=== PATIENT | female | born 1950 | race Caucasian/White ===

== ENCOUNTER 2018-11-02 05:03 | Inpatient (IN) | payer MEDICARE, OTHER ==
[~2018-11-02] VITALS: Ht 157.5 cm; Wt 69.9 kg
[2018-11-02] MEDS ORDERED: METF-440 PO (16:38)
[2018-11-02] MEDS ORDERED: POLY17PO4 PO (16:38)
[2018-11-02] MEDS ORDERED: LOSA25TA27 PO (16:38)
[2018-11-02] MEDS ORDERED: TRAZ-252 PO (16:38)
[2018-11-02] MEDS ORDERED: GLYB2.5T4 PO (16:38)
[2018-11-02] MEDS ORDERED: RANI150T8 PO (16:38)
[2018-11-02] MEDS ORDERED: LEVE100023 PO (16:38)
[2018-11-02] MEDS ORDERED: ALPR0.255 PO (16:38)
[2018-11-02] MEDS ORDERED: FERR325T23 PO (16:38)
[2018-11-02] MEDS ORDERED: DESV50TA20 PO (16:38)
[2018-11-02] MEDS ORDERED: CLON0.5T12 PO (16:38)
[2018-11-02] MEDS ORDERED: BLOOD SUGAR DIAGNOSTIC 1 EACH STRIP IN ONE (17:00)
[2018-11-02] MEDS ORDERED: MAGNESIUM HYDROXIDE 30 ML UDC PO PRN (17:00)
[2018-11-02] MEDS ORDERED: MAG HYDROX/AL HYDROX/SIMETH 30 ML UDC PO PRN (17:00)
--- NOTE | 2018-11-02 17:27 | NUR ---
GPS/RN RECEIVED PT DIRECT ADMIT ON 5150N HOLD FROM [facility]. ADMITTING ORDERS FROM DR POTTER RECEIVED AND CARRIED OUT. CONRADO MAXWELL NP MADE AWARE OF ADMISSION. PROPERTY CHECKED FOR CONTRABAND. ON FACE TO FACE ASSESSMENT NO SI OR HI REPORTED AT THE TIME OF ADMISSION. ADVISEMENT SERVED.
[2018-11-02 20:20] VITALS: BP 115/65
[2018-11-02] MEDS: LEVETIRACETAM (250 MG) 250 MG TABLET PO SCH (21:15)
[2018-11-03 08:00] VITALS: BP 135/71
[2018-11-03 08:03] LABS: BASOPHILS % (AUTO) 0.7 % (0.0-2.0); EOSINOPHILS % (AUTO) 1.7 % (0.0-6.0); HEMATOCRIT 38 % (33-45); HEMOGLOBIN 12.8 g/dL (11.5-14.8); LYMPHOCYTES # (AUTO) 1.1 /CMM (0.8-4.8); LYMPHOCYTES % (AUTO) 31.3 % (20.0-44.0); MEAN CORPUSCULAR HGB CONC 34 g/dl (31.0-36.0); MEAN CORPUSCULAR VOLUME 91 fL (82-100); MONOCYTES # (AUTO) 0.4 /CMM (0.1-1.30); MONOCYTES % (AUTO) 10.5 % (2.0-12.0); NEUTROPHILS % (AUTO) 55.8 % (43.0-81.0); PLATELET COUNT (AUTO) 232 /CMM (150-450); RED BLOOD CELL COUNT(AUTO) 4.15 MIL/uL (4.0-5.2); WHITE BLOOD COUNT (AUTO) 3.5 K/uL (4.3-11.0)
[2018-11-03 08:20] LABS: ALBUMIN 3.7 g/dL (3.4-5.0); BILIRUBIN,TOTAL 0.3 mg/dL (0.2-1.0); CALCIUM, SERUM 9.1 mg/dL (8.5-10.1); CREATININE 0.6 mg/dL (0.6-1.3); POTASSIUM 3.8 mmol/L (3.5-5.1); TOTAL PROTEIN, SERUM 6.8 g/dL (6.4-8.2)
[2018-11-03 08:24] LABS: CHOLESTEROL 189 mg/dL (<200); HDL CHOLESTEROL 74 mg/dL (40-60); LDL 93 mg/dL (0-99); TRIGLYCERIDES 104 mg/dL (30-150)
[2018-11-03] MEDS: glyBURIDE 5 MG TABLET PO SCH ×2 (08:35→18:26)
[2018-11-03] MEDS: METFORMIN 500 MG TABLET PO SCH ×2 (08:35→17:00)
[2018-11-03] MEDS: FERROUS SULFATE (325 MG) 325 MG/TAB TABLET PO SCH ×3 (08:35→17:00)
[2018-11-03] MEDS: LEVETIRACETAM (250 MG) 250 MG TABLET PO SCH ×2 (08:35→20:50)
[2018-11-03] MEDS: FAMOTIDINE (20 MG) 20 MG TABLET PO SCH (08:35)
[2018-11-03] MEDS: POLYETHYLENE GLYCOL 3350 17 GM POWD.PACK PO SCH (08:35)
[2018-11-03] MEDS: LOSARTAN POTASSIUM 25 MG TABLET PO SCH (08:35)
[2018-11-03] MEDS ORDERED: glyBURIDE 2.5 MG TABLET PO SCH (09:00)
[2018-11-03 16:00] VITALS: BP 130/81
[2018-11-03 20:47] VITALS: BP 105/67
[2018-11-03] MEDS: LORAZEPAM 0.5 MG TABLET PO PRN (21:08)
[2018-11-03] MEDS: MIRTAZAPINE 15 MG TABLET PO SCH (22:00)
[2018-11-04] MEDS: ACETAMINOPHEN 325 MG TABLET PO PRN (04:31)
[2018-11-04 08:00] VITALS: BP 132/56
[2018-11-04] MEDS: glyBURIDE 5 MG TABLET PO SCH (09:26)
[2018-11-04] MEDS: LEVETIRACETAM (250 MG) 250 MG TABLET PO SCH ×2 (09:26→21:54)
[2018-11-04] MEDS: FAMOTIDINE (20 MG) 20 MG TABLET PO SCH (09:26)
[2018-11-04] MEDS: LOSARTAN POTASSIUM 25 MG TABLET PO SCH (09:27)
[2018-11-04] MEDS: METFORMIN 500 MG TABLET PO SCH (09:27)
[2018-11-04] MEDS: FERROUS SULFATE (325 MG) 325 MG/TAB TABLET PO SCH ×3 (09:27→17:14)
[2018-11-04] MEDS: RIVASTIGMINE TARTRATE 1.5 MG CAPSULE PO SCH ×2 (09:29→21:54)
[2018-11-04] MEDS: POLYETHYLENE GLYCOL 3350 17 GM POWD.PACK PO SCH (09:29)
[2018-11-04] MEDS: clonazePAM 0.5 MG TABLET PO SCH ×2 (09:31→21:55)
[2018-11-04] MEDS ORDERED: DEXTROSE 50%-WATER 50 ML DISP.SYRIN ONE (12:14)
--- NOTE | 2018-11-04 12:20 | NUR ---
GPS/RN PT FOUND UNRESPONSIVE AND DIAPHORETIC. RAPID RESPONSE PROTOCOL INITIATED. FOUND WITH LOW BS ON MONITOR. DEXTROSE ADMINISTERED VIA L HAND 22 G HEPLOCK . PT REGAIN CONSCIOUSNESS, ABLE TO TO COMMUNICATE AND ACCUCHECK DONE WITH HZ=889. NEW ORDERS FROM HANS NEUROLOGY TEACHER RECEIVED ADNCARRIED OUT
[2018-11-04] MEDS ORDERED: DEXTROSE 50%-WATER 50 ML DISP.SYRIN IV PRN (12:30)
[2018-11-04] MEDS ORDERED: INSULIN REGULAR, HUMAN 100 UNIT/ML 3 ML VIAL SQ PRN (12:30)
[2018-11-04 12:40] VITALS: BP 161/94
--- NOTE | 2018-11-04 15:15 | NUR ---
GPS/RN PT HAS EPISODE OF LOW BS.(LOW ON THE GLUCOMETER) PT REMAINED CONSCIOUS. HANS COMMERCIAL ELECTRICIAN CALLED FOR THE ORDERS NEW ORDERS RECEIVED AND CARRIED OUT. RIGHT HAND 22G H/L STARTED. DEXTROSE IV GIVEN RESULTED WITH BS= 325 10 MIN AFTER INFUSION.
[2018-11-04 16:00] VITALS: BP 155/74
[2018-11-04] MEDS ORDERED: DEXTROSE 50%-WATER 50 ML DISP.SYRIN IVP ONE (16:00)
[2018-11-04] MEDS ORDERED: IV D5W 1,000 ML IV ONE (16:00)
[2018-11-04] MEDS: BLOOD SUGAR DIAGNOSTIC 1 EACH STRIP IN SCH ×2 (17:21→22:46)
[2018-11-04 21:10] VITALS: BP 125/61
[2018-11-04] MEDS: MIRTAZAPINE 15 MG TABLET PO SCH (21:54)
--- NOTE | 2018-11-04 22:07 | NUR ---
GPS-RN PATIENT'S BLOOD SUGAR LEVEL RESULT-41MG/DL, PATIENT IS AWAKE, ALERT AND VERBALLY RESPONSIVE. ON IV D5W @50CC/HR INFUSING WELL. HEPLOCK ON R HAND 22G, PATENT AND INTACT. ORANGE JUICE WAS GIVEN, TOLERATED WELL. 223- RECHECKED BSL -92MG/DL PATIENT IS AWAKE, ALERT AND VERBALLY RESPONSIVE. WILL CONTINUE TO MONITOR.
[2018-11-05] MEDS: LORAZEPAM 0.5 MG TABLET PO PRN (02:13)
[2018-11-05 08:00] VITALS: BP 131/72
[2018-11-05] MEDS: BLOOD SUGAR DIAGNOSTIC 1 EACH STRIP IN SCH ×4 (08:07→22:20)
[2018-11-05] MEDS: LOSARTAN POTASSIUM 25 MG TABLET PO SCH (08:39)
[2018-11-05] MEDS: RIVASTIGMINE TARTRATE 1.5 MG CAPSULE PO SCH ×2 (08:39→22:19)
[2018-11-05] MEDS: FERROUS SULFATE (325 MG) 325 MG/TAB TABLET PO SCH ×3 (08:39→16:47)
[2018-11-05] MEDS: clonazePAM 0.5 MG TABLET PO SCH ×2 (08:39→22:19)
[2018-11-05] MEDS: LEVETIRACETAM (250 MG) 250 MG TABLET PO SCH ×2 (08:39→22:19)
[2018-11-05] MEDS: FAMOTIDINE (20 MG) 20 MG TABLET PO SCH (08:39)
[2018-11-05] MEDS: POLYETHYLENE GLYCOL 3350 17 GM POWD.PACK PO SCH (09:32)
--- NOTE | 2018-11-05 15:21 | NUR ---
KRISTOFER called the pts , Juwan ([phone]), and received a busy dial tone and therefore was unable to leave a message.
--- NOTE | 2018-11-05 15:30 | NUR ---
GROUP NOTE: SW encourage pt to participate in group therapy in this present day discussing the topic of "reality-testing." Pt refused to attend stating, " I am very anxious and I feel like I will get a panic attack if I leave my room." SW provided intervention and discussed pts anxiety and suicidal ideation. Pt stated that she just couldn't function without her and that she needed him.
[2018-11-05 16:00] VITALS: BP 102/64
--- NOTE | 2018-11-05 16:04 | NUR ---
Initial Discharge Plan: Pt currently resides in her home with her located at [facility] [place] [address]; ([phone]). Per pt, she would like to return to her home once her goes back. KRISTOFER will work with the pt and the MD regarding appropriate discharge planning. SW will form a safe and discharge plan.
[2018-11-05 17:21] LABS: CREATININE 0.8 mg/dL (0.6-1.3); POTASSIUM 3.9 mmol/L (3.5-5.1)
[2018-11-05 20:09] VITALS: BP 102/55
[2018-11-05] MEDS: MIRTAZAPINE 15 MG TABLET PO SCH (22:19)
[2018-11-06 08:00] VITALS: BP 106/65
[2018-11-06] MEDS: BLOOD SUGAR DIAGNOSTIC 1 EACH STRIP IN SCH ×4 (08:01→21:34)
[2018-11-06] MEDS: LOSARTAN POTASSIUM 25 MG TABLET PO SCH (09:00)
[2018-11-06] MEDS: FAMOTIDINE (20 MG) 20 MG TABLET PO SCH (09:25)
[2018-11-06] MEDS: RIVASTIGMINE TARTRATE 1.5 MG CAPSULE PO SCH ×2 (09:25→20:24)
[2018-11-06] MEDS: LEVETIRACETAM (250 MG) 250 MG TABLET PO SCH ×2 (09:25→20:24)
[2018-11-06] MEDS: FERROUS SULFATE (325 MG) 325 MG/TAB TABLET PO SCH ×3 (09:25→16:58)
[2018-11-06] MEDS: clonazePAM 0.5 MG TABLET PO SCH ×2 (09:25→20:24)
[2018-11-06] MEDS: POLYETHYLENE GLYCOL 3350 17 GM POWD.PACK PO SCH (09:25)
[2018-11-06] MEDS: LORAZEPAM 0.5 MG TABLET PO PRN (12:06)
--- NOTE | 2018-11-06 12:10 | NUR ---
GPS/RN-NOTES PATIENT SCREAMING AND YELLING IN THE ROOM,CRYING AND ANGRY. ENCOURAGED PATIENT TO VENT FEELINGS AT STAFF. ATIVAN OFFERED AND AGREED. ATIVAN 1MG P.O GIVEN PRN ORDER. WILL CONT. MONITORING Q15 MINS. FOR SAFETY AND BEHAVIOR.
--- NOTE | 2018-11-06 13:15 | NUR ---
GPS/RN -NOTES PATIENT LAYING IN BED CALM,NO ACUTE DISTRESS NOTED.
--- NOTE | 2018-11-06 15:26 | NUR ---
Group Note: KRISTOFER encouraged pt to participate in group therapy on 11/06/18 at 2pm discussing the topic of discharge planning. Pt refused to attend stating, "I do not want to talk about anything in front of all of them." SW provided an individual intervention and discussed pts anxiety around speak to other people and she stated that she only wants to go home and speak to her own .
[2018-11-06 16:00] VITALS: BP 108/60
[2018-11-06 19:58] VITALS: BP 145/67
[2018-11-06] MEDS: MIRTAZAPINE 15 MG TABLET PO SCH (21:19)
[2018-11-07 08:00] VITALS: BP 110/65
[2018-11-07] MEDS: BLOOD SUGAR DIAGNOSTIC 1 EACH STRIP IN SCH ×4 (08:40→22:11)
[2018-11-07] MEDS: POLYETHYLENE GLYCOL 3350 17 GM POWD.PACK PO SCH (08:41)
[2018-11-07] MEDS: RIVASTIGMINE TARTRATE 1.5 MG CAPSULE PO SCH ×2 (08:41→21:32)
[2018-11-07] MEDS: FAMOTIDINE (20 MG) 20 MG TABLET PO SCH (08:42)
[2018-11-07] MEDS: FERROUS SULFATE (325 MG) 325 MG/TAB TABLET PO SCH ×3 (08:42→17:03)
[2018-11-07] MEDS: LOSARTAN POTASSIUM 25 MG TABLET PO SCH (08:42)
[2018-11-07] MEDS: clonazePAM 0.5 MG TABLET PO SCH ×2 (08:42→21:32)
[2018-11-07] MEDS: LEVETIRACETAM (250 MG) 250 MG TABLET PO SCH ×2 (08:43→21:32)
[2018-11-07 16:00] VITALS: BP 132/65
--- NOTE | 2018-11-07 18:49 | NUR ---
RN NOTE: 1700 BS 138: PATIENT REFUSED COVERAGE.
[2018-11-07 20:12] VITALS: BP 118/64
[2018-11-07] MEDS: MIRTAZAPINE 15 MG TABLET PO SCH (21:32)
[2018-11-08] MEDS: ACETAMINOPHEN 325 MG TABLET PO PRN (01:14)
[2018-11-08 07:23] LABS: BASOPHILS % (AUTO) 0.7 % (0.0-2.0); EOSINOPHILS % (AUTO) 3.5 % (0.0-6.0); HEMATOCRIT 34 % (33-45); HEMOGLOBIN 11.6 g/dL (11.5-14.8); LYMPHOCYTES # (AUTO) 1.3 /CMM (0.8-4.8); LYMPHOCYTES % (AUTO) 35.1 % (20.0-44.0); MEAN CORPUSCULAR HGB CONC 34 g/dl (31.0-36.0); MEAN CORPUSCULAR VOLUME 91 fL (82-100); MONOCYTES # (AUTO) 0.4 /CMM (0.1-1.30); NEUTROPHILS # (AUTO) 1.8 /CMM (1.8-8.9); NEUTROPHILS % (AUTO) 49.7 % (43.0-81.0); PLATELET COUNT (AUTO) 204 /CMM (150-450); WHITE BLOOD COUNT (AUTO) 3.7 K/uL (4.3-11.0)
[2018-11-08 07:47] LABS: CALCIUM, SERUM 8.7 mg/dL (8.5-10.1); CREATININE 0.6 mg/dL (0.6-1.3); PHOSPHORUS 4.4 mg/dL (2.5-4.9); POTASSIUM 4.3 mmol/L (3.5-5.1)
[2018-11-08] MEDS: BLOOD SUGAR DIAGNOSTIC 1 EACH STRIP IN SCH ×4 (07:55→22:20)
[2018-11-08 08:00] VITALS: BP 118/67
[2018-11-08] MEDS: FAMOTIDINE (20 MG) 20 MG TABLET PO SCH (09:04)
[2018-11-08] MEDS: RIVASTIGMINE TARTRATE 1.5 MG CAPSULE PO SCH ×2 (09:04→20:35)
[2018-11-08] MEDS: clonazePAM 0.5 MG TABLET PO SCH (09:04)
[2018-11-08] MEDS: LEVETIRACETAM (250 MG) 250 MG TABLET PO SCH ×2 (09:04→20:35)
[2018-11-08] MEDS: POLYETHYLENE GLYCOL 3350 17 GM POWD.PACK PO SCH (09:05)
[2018-11-08] MEDS: FERROUS SULFATE (325 MG) 325 MG/TAB TABLET PO SCH ×3 (09:05→16:46)
[2018-11-08] MEDS: LOSARTAN POTASSIUM 25 MG TABLET PO SCH (09:05)
--- NOTE | 2018-11-08 10:40 | NUR ---
SW spoke to the pt in her room regarding her discharge planning. The pt stated that her was placed in a Board and Care that she is unaware of and needs to know. She stated that they both cannot return to their home and therefore they need placement. She does not want to be placed in the same board and care as him but would like to know where he is and how they can be together. SW stated that she will call the hospital that he came from and attempt to collect information.
--- NOTE | 2018-11-08 11:49 | NUR ---
SW called the pts , Juwan ([phone]), and received a non working number message.
--- NOTE | 2018-11-08 12:09 | NUR ---
KRISTOFER faxed a referral to [facility] with attention to Ara GUNN to fax number: [phone].
--- NOTE | 2018-11-08 12:41 | NUR ---
RN NOTE: 1200 BS 81 MG/DL NO COVERAGE NEEDED.
--- NOTE | 2018-11-08 15:30 | NUR ---
GROUP NOTE: Pt was present in group therapy on 11/08/18 at 2:30pm but was unable to participate as pt is cognitively impaired.
--- NOTE | 2018-11-08 15:54 | NUR ---
RN NOTE: INFORMED DONIS CHARLES ABOUT PATIENT'S LABILE BS LEVELS. RECOMMENDED HGBA1C LABS TO BE DRAWN. ARACELI STATED SHE WILL PUT IN ORDERS.
[2018-11-08 16:00] VITALS: BP 100/60
--- NOTE | 2018-11-08 16:49 | NUR ---
RN NOTE: 1700 BS 92 MG/DL. NO COVERAGE NEEDED.
[2018-11-08] MEDS ORDERED: clonazePAM 0.5 MG TABLET PO SCH (17:30)
[2018-11-08 20:00] VITALS: BP 112/52
[2018-11-08 20:06] VITALS: BP 112/52
[2018-11-08] MEDS: MIRTAZAPINE 15 MG TABLET PO SCH (22:09)
[2018-11-08] MEDS: TEMAZEPAM 7.5 MG CAPSULE PO PRN (23:44)
--- NOTE | 2018-11-08 23:44 | NUR ---
GPS RN NOTE, PATIENT HAS A COMPLAINT OF NOT BEING ABLE TO SLEEP AND IS REQUESTING RESTORIL AT THIS TIME. PATIENT VITAL SIGNS ARE STABLE. GAVE RESTORIL 15MG PO HS PRN ORDERED. WILL REASSESS FOR INSOMNIA AND I WILL CONTINUE TO MONITOR THIS PATIENT.
[2018-11-09 08:00] VITALS: BP 115/75
[2018-11-09] MEDS: BLOOD SUGAR DIAGNOSTIC 1 EACH STRIP IN SCH (08:56)
[2018-11-09] MEDS: POLYETHYLENE GLYCOL 3350 17 GM POWD.PACK PO SCH (08:56)
[2018-11-09] MEDS: LOSARTAN POTASSIUM 25 MG TABLET PO SCH (08:57)
[2018-11-09] MEDS: FAMOTIDINE (20 MG) 20 MG TABLET PO SCH (08:57)
[2018-11-09] MEDS: FERROUS SULFATE (325 MG) 325 MG/TAB TABLET PO SCH ×3 (08:57→16:30)
[2018-11-09] MEDS: RIVASTIGMINE TARTRATE 1.5 MG CAPSULE PO SCH ×2 (08:57→20:47)
[2018-11-09] MEDS: clonazePAM 0.5 MG TABLET PO SCH ×3 (09:02→16:30)
[2018-11-09] MEDS: LEVETIRACETAM (250 MG) 250 MG TABLET PO SCH ×2 (09:03→20:47)
--- NOTE | 2018-11-09 09:39 | NUR ---
Ara ([phone]) from [facility] contacted the and stated that the pt was accepted to their facility.
--- NOTE | 2018-11-09 13:09 | NUR ---
RN NOTE: PATIENT HAD HER LABS DRAWN. HGBA1C LEVELS ARE 5.[address] PACKER AND WAS ORDERED TO DC ALL DIABETIC ORDERS. ORDERS WERE DISCONTINUED AND PATIENT'S DIET WAS SWITCHED FROM CCHO TO CARDIAC.
[2018-11-09 16:00] VITALS: BP 112/60
[2018-11-09 20:00] VITALS: BP 101/52
[2018-11-09 20:51] VITALS: BP 101/52
[2018-11-09] MEDS: MIRTAZAPINE 15 MG TABLET PO SCH (21:23)
--- NOTE | 2018-11-10 03:54 | NUR ---
RN NOTES: SLEEP WELL IN THE NIGHT, MED COMPLIANCE, CONTINUE TO KEEP ON CLOSE WATCH, FALL, SAFETY AND ASPIRATION PRECAUTION OBSERVED.
[2018-11-10 08:00] VITALS: BP 100/64
[2018-11-10] MEDS: POLYETHYLENE GLYCOL 3350 17 GM POWD.PACK PO SCH (08:32)
[2018-11-10] MEDS: LOSARTAN POTASSIUM 25 MG TABLET PO SCH (08:33)
[2018-11-10] MEDS: clonazePAM 0.5 MG TABLET PO SCH ×3 (08:33→17:07)
[2018-11-10] MEDS: FERROUS SULFATE (325 MG) 325 MG/TAB TABLET PO SCH ×3 (08:33→17:07)
[2018-11-10] MEDS: FAMOTIDINE (20 MG) 20 MG TABLET PO SCH (08:33)
[2018-11-10] MEDS: LEVETIRACETAM (250 MG) 250 MG TABLET PO SCH ×2 (08:36→21:18)
[2018-11-10] MEDS: RIVASTIGMINE TARTRATE 1.5 MG CAPSULE PO SCH ×2 (08:36→21:18)
[2018-11-10 16:00] VITALS: BP 113/60
[2018-11-10 20:00] VITALS: BP 102/57
[2018-11-10 20:15] VITALS: BP 102/57
[2018-11-10] MEDS: MIRTAZAPINE 15 MG TABLET PO SCH (21:18)
[2018-11-11 08:00] VITALS: BP 116/57
[2018-11-11] MEDS: POLYETHYLENE GLYCOL 3350 17 GM POWD.PACK PO SCH (08:32)
[2018-11-11] MEDS: clonazePAM 0.5 MG TABLET PO SCH ×3 (08:32→16:21)
[2018-11-11] MEDS: LEVETIRACETAM (250 MG) 250 MG TABLET PO SCH ×2 (08:32→21:34)
[2018-11-11] MEDS: RIVASTIGMINE TARTRATE 1.5 MG CAPSULE PO SCH ×2 (08:33→21:34)
[2018-11-11] MEDS: FAMOTIDINE (20 MG) 20 MG TABLET PO SCH (08:34)
[2018-11-11] MEDS: LOSARTAN POTASSIUM 25 MG TABLET PO SCH (08:34)
[2018-11-11] MEDS: FERROUS SULFATE (325 MG) 325 MG/TAB TABLET PO SCH ×3 (08:34→16:21)
[2018-11-11 16:00] VITALS: BP 130/80
[2018-11-11 20:00] VITALS: BP 99/41
[2018-11-11 20:09] VITALS: BP 99/41
[2018-11-11] MEDS: MIRTAZAPINE 15 MG TABLET PO SCH (21:34)
[2018-11-11] MEDS: TEMAZEPAM 7.5 MG CAPSULE PO PRN (22:23)
[2018-11-12 08:00] VITALS: BP 113/70
[2018-11-12] MEDS: clonazePAM 0.5 MG TABLET PO SCH ×3 (08:36→16:06)
[2018-11-12] MEDS: POLYETHYLENE GLYCOL 3350 17 GM POWD.PACK PO SCH (08:36)
[2018-11-12] MEDS: LEVETIRACETAM (250 MG) 250 MG TABLET PO SCH ×2 (08:36→20:27)
[2018-11-12] MEDS: FAMOTIDINE (20 MG) 20 MG TABLET PO SCH (08:36)
[2018-11-12] MEDS: FERROUS SULFATE (325 MG) 325 MG/TAB TABLET PO SCH ×3 (08:37→16:06)
[2018-11-12] MEDS: LOSARTAN POTASSIUM 25 MG TABLET PO SCH (08:37)
[2018-11-12] MEDS: RIVASTIGMINE TARTRATE 1.5 MG CAPSULE PO SCH ×2 (08:37→20:27)
--- NOTE | 2018-11-12 12:45 | NUR ---
KRISTOFER received a call from Nina ([phone]) and she stated that the pts , Elieser, is currently at [facility]. She stated that she works for a placement agency and that she is attempting to place the pts and the pt together. She asked the SW to fill out the physicians report and fax it to her the following day.
--- NOTE | 2018-11-12 14:51 | NUR ---
GROUP NOTE: Pt was present in group therapy on 11/12/18 at 1:30pm but was unable to participate as pt is cognitively impaired and confused.
[2018-11-12 16:00] VITALS: BP 113/60
[2018-11-12 19:41] VITALS: BP 115/63
[2018-11-12] MEDS: TEMAZEPAM 7.5 MG CAPSULE PO PRN (20:27)
[2018-11-12] MEDS: MIRTAZAPINE 15 MG TABLET PO SCH (21:23)
[2018-11-12] MEDS: LORAZEPAM 0.5 MG TABLET PO PRN (21:23)
[2018-11-13 08:00] VITALS: BP 117/69
[2018-11-13] MEDS: LOSARTAN POTASSIUM 25 MG TABLET PO SCH (09:00)
[2018-11-13] MEDS: clonazePAM 0.5 MG TABLET PO SCH ×3 (09:42→17:38)
[2018-11-13] MEDS: FAMOTIDINE (20 MG) 20 MG TABLET PO SCH (09:43)
[2018-11-13] MEDS: LEVETIRACETAM (250 MG) 250 MG TABLET PO SCH ×2 (09:43→21:05)
[2018-11-13] MEDS: RIVASTIGMINE TARTRATE 1.5 MG CAPSULE PO SCH ×2 (09:43→21:05)
[2018-11-13] MEDS: FERROUS SULFATE (325 MG) 325 MG/TAB TABLET PO SCH ×3 (09:43→17:38)
--- NOTE | 2018-11-13 12:42 | NUR ---
KRISTOFER called Nina ([phone]) from the placement agency and stated that the SW had the Physicians Report completed but the chest x ray results are still pending. Nina stated that once the report is done to have it faxed over. She stated that she has APS involved in terms of figuring out the pts finances and that she is working to find placement.
--- NOTE | 2018-11-13 12:53 | NUR ---
KRISTOFER faxed a Physicians Report to Nina Guerrier to the fax number: [phone].
--- NOTE | 2018-11-13 12:58 | NUR ---
CHEST X-RAY DONE.
[2018-11-13] MEDS: POLYETHYLENE GLYCOL 3350 17 GM POWD.PACK PO SCH (13:21)
[2018-11-13 15:49] VITALS: BP 133/79
[2018-11-13 20:02] VITALS: BP 98/52
[2018-11-13] MEDS: LORAZEPAM 0.5 MG TABLET PO PRN (20:42)
--- NOTE | 2018-11-13 20:45 | NUR ---
GPS-RN RECEIVED A CALL FROM [facility] THAT PATIENT'S AT 8:25PM. DR. POTTER ORDERED ATIVAN 1MG PO ONCE. ADMINISTERED ATIVAN 1MG PO TO KEEP HER DOWN BEFORE THE CHARGE NURSE TALK TO HER.
[2018-11-13] MEDS ORDERED: LORAZEPAM 1 MG TABLET PO ONE (21:00)
[2018-11-13] MEDS: MIRTAZAPINE 15 MG TABLET PO SCH (21:06)
[2018-11-13] MEDS: TEMAZEPAM 7.5 MG CAPSULE PO PRN (22:37)
[2018-11-14] MEDS: LORAZEPAM 0.5 MG TABLET PO PRN (02:05)
--- NOTE | 2018-11-14 06:30 | NUR ---
GPS-RN PATIENT IS VERY DEPRESSED, CRYING, GRIEVING TO HER 'S PASSING LAST NIGHT. PATIENT VERBALIZED WANTING TO KILL HERSELF BUT PATIENT IS ABLE TO CONTRACT FOR SAFETY. VERBALIZATION OF FEELINGS ENCOURAGED. WILL CONTINUE TO MONITOR Q15MIN ROUNDS FOR SAFETY AND BEHAVIOR.
[2018-11-14 08:00] VITALS: BP 130/78
[2018-11-14] MEDS: clonazePAM 0.5 MG TABLET PO SCH ×3 (09:00→18:44)
--- NOTE | 2018-11-14 09:53 | NUR ---
KRISTOFER received a call from pts friend, Eleanor ([phone]), who stated that the pts last night. She stated that she is moving to [place] the following morning but would like to figure out a plan for the pt because she does not have anyone else. She stated that she wants the SW to work with Nina and place the pt in [place] at a Care Center. KRISTOFER stated that she would speak to both the pt and Nina.
--- NOTE | 2018-11-14 10:17 | NUR ---
Individual Intervention: SW spoke to the pt about her husbands passing and her discharge planning. SW provided emotional support as the pt processed his . Once the pt appeared to be calm, SW stated that she is going to continue working on her discharge planning towards her home with Nina to handle her finances and belongings and then the pt will continue to work with Nina regarding a more permanent placement in [place] where she has support. Pt stated that she was feeling anxious and overwhelmed and the SW affirmed those feelings and stated that she has individuals/professionals who are assisting her.
--- NOTE | 2018-11-14 10:21 | NUR ---
KRISTOFER called Nina ([phone]), placement agency [employer], and stated that she has been updated regarding the pts situation and that she will attempt to fax the Physicians report again so that placement can be acquired and the pt can move along with her discharge.
[2018-11-14] MEDS: LOSARTAN POTASSIUM 25 MG TABLET PO SCH (10:26)
[2018-11-14] MEDS: FAMOTIDINE (20 MG) 20 MG TABLET PO SCH (10:26)
[2018-11-14] MEDS: RIVASTIGMINE TARTRATE 1.5 MG CAPSULE PO SCH ×2 (10:26→22:21)
[2018-11-14] MEDS: LEVETIRACETAM (250 MG) 250 MG TABLET PO SCH ×2 (10:26→22:21)
[2018-11-14] MEDS: POLYETHYLENE GLYCOL 3350 17 GM POWD.PACK PO SCH (10:27)
[2018-11-14] MEDS: FERROUS SULFATE (325 MG) 325 MG/TAB TABLET PO SCH ×3 (10:27→18:44)
--- NOTE | 2018-11-14 13:15 | NUR ---
Individual Intervention: SW met with the pt once again because she stated that she wanted to talk about her husbands passing. SW informed her about the plan and how it has changed since her passed and the pt appeared to be distressed. Pt stated, "I want to kill myself."
--- NOTE | 2018-11-14 14:57 | NUR ---
KRISTOFER called Nina ([phone]), placement agency case filler, and she stated that she received the fax and is working on placing the pt. She stated that the pts friend is going to be her DPOA and that they are trying to locate the money that the pts took out to close their accounts before he .
[2018-11-14 16:00] VITALS: BP 105/67
--- NOTE | 2018-11-14 16:03 | NUR ---
SW received a call from Lesley ([phone]) from [facility] who stated that the placement agency is interested in the pt and would like a fax of records.
--- NOTE | 2018-11-14 16:07 | NUR ---
GROUP NOTE: SW encouraged pt to attend group therapy on this present day discussing "discharge planning." Pt stated that she was feeling sad as she received news that her . Pt appeared with sad affect and tearful. SW provided pt with loss and grief intervention.
--- NOTE | 2018-11-14 16:15 | NUR ---
KRISTOFER faxed a referral to [facility] with attention to Lesley to the fax number: [phone].
--- NOTE | 2018-11-14 18:30 | NUR ---
relocated to [facility]. dr. maldonado in with plans of dc tomorrow.
[2018-11-14 19:57] VITALS: BP 101/56
--- NOTE | 2018-11-14 20:00 | NUR ---
GPS-RN PM OPENING NOTE PATIENT IS VERY DEPRESSED LAYING IN BED. SEEN WITH EYES CLOSED. PATIENT RESPONDS TO VOICE WITH TOUCH. STATES " I DON'T WANT TO BE BOTHERED AT THIS TIME." PATIENT WOULDNT DENY NOR CONFIRM SI AND HI. RESTATED SHE WANTED TO BE LEFT ALONE, STATES SHE IS JUST TRYING TO REST AND GET SOME SLEEP. . VERBALIZATION OF FEELINGS ENCOURAGED. WILL CONTINUE TO MONITOR Q15MIN ROUNDS FOR SAFETY AND BEHAVIOR.
[2018-11-14] MEDS: MIRTAZAPINE 15 MG TABLET PO SCH (22:21)
[2018-11-15 08:00] VITALS: BP 113/59
[2018-11-15] MEDS: FERROUS SULFATE (325 MG) 325 MG/TAB TABLET PO SCH ×3 (09:07→16:36)
[2018-11-15] MEDS: LOSARTAN POTASSIUM 25 MG TABLET PO SCH (09:07)
[2018-11-15] MEDS: LEVETIRACETAM (250 MG) 250 MG TABLET PO SCH ×2 (09:07→21:07)
[2018-11-15] MEDS: POLYETHYLENE GLYCOL 3350 17 GM POWD.PACK PO SCH (09:07)
[2018-11-15] MEDS: FAMOTIDINE (20 MG) 20 MG TABLET PO SCH (09:07)
[2018-11-15] MEDS: RIVASTIGMINE TARTRATE 1.5 MG CAPSULE PO SCH ×2 (09:07→21:07)
[2018-11-15] MEDS: clonazePAM 0.5 MG TABLET PO SCH ×3 (09:08→16:36)
--- NOTE | 2018-11-15 10:23 | NUR ---
KRISTOFER called Nina ([phone]), from [facility], and she stated that the pts friend, Eleanor, moved to [place] and did not handle the finances for the pt before leaving. She stated that without the money there is no way of transferring the pt to a facility that she would have to pay for. She stated that APS is involved and provided the SW with the information of the mailroom personnel. KRISTOFER stated that the pt was accepted to [facility] and that she will be discharged tomorrow.
--- NOTE | 2018-11-15 10:51 | NUR ---
KRISTOFER called pts APS Jevon MINER ([phone]), and left a voicemail stating that the SW would like to discuss the pts case and placement.
--- NOTE | 2018-11-15 10:52 | NUR ---
KRISTOFER contacted Ara ([phone]) from [facility] and informed her that the pt will be discharged tomorrow.
--- NOTE | 2018-11-15 10:57 | NUR ---
KRISTOFER called Eleanor ([phone]), pts friend, and informed her that the pt will be sent to a facility called [facility] and she stated that she will call the SW back to receive the information of the facility and expressed how difficult it has been to navigate through her affairs.
--- NOTE | 2018-11-15 15:45 | NUR ---
Group Note: 11/15/18 Goal: Patient will attend group held today from 2-2:30pm in the activities room and participate and/or actively listen to peers and be respectful. Intervention: SW facilitated group session with patients regarding Mindfulness. SW current relaxation techniques and educated pt. about mindfulness how to practice it and its purpose. SW facilitated mindfulness breathing exercise. Response: Patient was agreeable to participating in group session. The patient presented withdrawn not wanting to share with the group. However, she participated in the mindfulness breathing exercises. Patient was alert remained calm and cooperative throughout session. The patient was respectful towards her peers when they shared. Plan: Patient will be invited to attend next home health care social worker group session held.
[2018-11-15 16:00] VITALS: BP 121/77
[2018-11-15 20:29] VITALS: BP 110/59
[2018-11-15] MEDS: MIRTAZAPINE 15 MG TABLET PO SCH (21:07)
[2018-11-16 08:00] VITALS: BP 114/65
[2018-11-16] MEDS: clonazePAM 0.5 MG TABLET PO SCH (08:04)
[2018-11-16 08:05] VITALS: BP 114/65
[2018-11-16] MEDS: POLYETHYLENE GLYCOL 3350 17 GM POWD.PACK PO SCH (08:05)
[2018-11-16] MEDS: RIVASTIGMINE TARTRATE 1.5 MG CAPSULE PO SCH (08:05)
[2018-11-16] MEDS: LEVETIRACETAM (250 MG) 250 MG TABLET PO SCH (08:05)
[2018-11-16] MEDS: FAMOTIDINE (20 MG) 20 MG TABLET PO SCH (08:05)
[2018-11-16] MEDS: FERROUS SULFATE (325 MG) 325 MG/TAB TABLET PO SCH (08:05)
[2018-11-16] MEDS: LOSARTAN POTASSIUM 25 MG TABLET PO SCH (08:05)
--- NOTE | 2018-11-16 08:13 | NUR ---
DR. POTTER GAVE AN ORDER TO D//C HOLD AND D/C TO [facility] AND TO FOLLOW UP WITH PSYCH AND MEDICAL DOCTORS.
--- NOTE | 2018-11-16 10:00 | NUR ---
RN NOTE: PT D/C TO [facility] AT THIS TIME IN [place]. TRANSPORTATION FROM FACILITY PROVIDED. PT AOx3, ID BAND REMOVED. DENIES SI AND HI AT THIS TIME. MEDICATIONS BROUGHT TO FACILITY FROM HOME RETURNED TO PT. PT REFUSED SKIN ASSESSMENT PHOTOGRAPHS AT THIS TIME. VSS. REPORT CALLED TO NARCISO PINTO AT FACILITY.
--- NOTE | 2018-11-16 12:24 | NUR ---
Individual Intervention: SW spoke to the pt about her discharge plan and the pt was informed that she will be followed by a placement agency that will assist her with her transfer to [place].
--- NOTE | 2018-11-16 12:25 | NUR ---
Discharge Note: Pt was discharged to [facility] ([facility] located at [address] [place] [id number]; ([phone]). Pt was picked up by the facility around 10AM. Pt�s friend, Eleanor ([phone]), was made aware of the discharge. Upon discharge, the pt appeared to be in a depressed mood and presented with a distressed affect. Pt denied both suicidal and homicidal ideation as well as visual and auditory hallucinations. Pt will continue to be followed up by Nina Guerrier ([phone]) from [facility] regarding placing the pt at a care facility near her friend. Pt will be under the care of her psychiatrist, Dr. Hong, located at [address] [place] [address]; and her aircraft engineer, Dr. Sosa, located at [address] [place] [address] [address], [place] [address]; .
[2018-11-17] MEDS ORDERED: FAMO20TA8 PO (07:23)
[2018-11-17] MEDS ORDERED: LEVE1000 PO (07:27)
[2018-11-17] MEDS ORDERED: MIRT30TA PO (07:29)
[2018-11-17] MEDS ORDERED: CLON0.5T12 PO (07:33)
[2018-11-17] MEDS ORDERED: RIVA1.5C7 PO (07:41)
== END 2018-11-16 10:00 | DRG 885 ==
LOC: GPS 16:14
PROVIDERS: ADMIT Psychiatry & Neurology Psychiatry; ATTEND Nurse Practitioner Acute Care
DX: F33.9 Major depressive disorder, recurrent, unspecified (principal); K21.9 Gastro-esophageal reflux disease without esophagitis; E86.0 Dehydration; K58.9 Irritable bowel syndrome, unspecified; M79.7 Fibromyalgia; Z73.6 Limitation of activities due to disability; M19.90 Unspecified osteoarthritis, unspecified site; F41.9 Anxiety disorder, unspecified; E11.649 Type 2 diabetes mellitus with hypoglycemia without coma; T38.3X5A Adverse effect of insulin and oral hypoglycemic [antidiabetic] drugs, initial encounter; Z79.84 Long term (current) use of oral hypoglycemic drugs; F03.90 Unspecified dementia, unspecified severity, without behavioral disturbance, psychotic disturbance, mood disturbance, and anxiety
CPT/HCPCS: 36415; 71045-TC; 80048-TC; 80053-TC; 80061-TC; 82962-TC; 83735-TC; 84100-TC; 85025-TC; 87081-TC; J1815; J7070

== ENCOUNTER 2018-11-16 18:57 | Inpatient (IN) | payer MEDICARE, OTHER ==
[~2018-11-16] VITALS: Ht 162.6 cm; Wt 74.8 kg
[~2018-11-16 18:57] MED LIST: FERR325T23 PO; GLYB2.5T4 PO; LEVE100023 PO; LOSA25TA27 PO; METF-440 PO; POLY17PO4 PO; RANI150T8 PO
[2018-11-16 19:43] LABS: BASOPHILS % (AUTO) 0.5 % (0.0-2.0); EOSINOPHILS % (AUTO) 1.8 % (0.0-6.0); HEMATOCRIT 39 % (33-45); HEMOGLOBIN 13.1 g/dL (11.5-14.8); LYMPHOCYTES % (AUTO) 31.9 % (20.0-44.0); MEAN CORPUSCULAR HGB CONC 34 g/dl (31.0-36.0); MEAN CORPUSCULAR VOLUME 91 fL (82-100); MONOCYTES # (AUTO) 0.5 /CMM (0.1-1.30); MONOCYTES % (AUTO) 8.4 % (2.0-12.0); NEUTROPHILS # (AUTO) 3.6 /CMM (1.8-8.9); NEUTROPHILS % (AUTO) 57.4 % (43.0-81.0); PLATELET COUNT (AUTO) 254 /CMM (150-450); RED BLOOD CELL COUNT(AUTO) 4.24 MIL/uL (4.0-5.2); WHITE BLOOD COUNT (AUTO) 6.2 K/uL (4.3-11.0)
--- NOTE | 2018-11-16 20:09 | NUR ---
CALLED [facility] [phone] PER NURSE, ELLIOT "PT WAS TRANSFERRED FROM [facility], WAS HERE FOR 2 HOURS, PT STATES DOES NOT WANT TO STAY, BEGAN TO CRY, FEELS LIKE HER LIFE IS GOING TO END THERE. NO PLANS STATES"
--- NOTE | 2018-11-16 20:17 | NUR ---
PATIENT SEEN PATIENT SEEN REPORTS SHE JUST LEFT FROM [facility] AND WENT TO OUTSIDE FACILITY AND BROUGHT BACK TO ER FOR SI. PATIENT EXRESSED DESIRE TO KILL HERSELF BUT DENIES ANY PLAN. PERSONAL BELONGINGS TAKEN AWAY AND PATIENT BODY CHECK DID NOT REVEAL ANY JEWELERY OR ADDITIONAL CONTRABAND VS TAKEN. Addendum: 11/16/18 at 2018 by DOLORES PATIENT REPORTS THAT RECENT LIFE STRESSORS ARE TOO OVERWELMING FOR HER HER EMILIE AND THAT RECENT CIRCUMSTANCES ARE FORCING HER TO SELL HER HOUSE.
[2018-11-16 20:33] LABS: CALCIUM, SERUM 9.5 mg/dL (8.5-10.1); CARBON DIOXIDE 29 mmol/L (21-32); CHLORIDE 106 mmol/L (98-107); CREATININE 0.7 mg/dL (0.6-1.3); GLUCOSE 109 mg/dL (74-106); POTASSIUM 3.7 mmol/L (3.5-5.1); SODIUM SERUM 145 mmol/L (136-145); UREA NITROGEN, BLOOD 20 mg/dL (7-18)
[2018-11-16 20:37] LABS: ACETAMINOPHEN 0 ug/ml (10-30); ALANINE AMINOTRANSFERASE 73 U/L (12-78); ALBUMIN 3.9 g/dL (3.4-5.0); ALCOHOL, BLOOD < 3 mg/dL (0-0); ALKALINE PHOSPHATASE 152 U/L (46-116); ASPARTATE AMINOTRANSFERASE 42 U/L (15-37); BILIRUBIN,DIRECT 0.1 mg/dL (0.0-0.2); BILIRUBIN,TOTAL 0.2 mg/dL (0.2-1.0); SALICYLATE 1.2 mg/dL (2.8-20.0); TOTAL PROTEIN, SERUM 7.3 g/dL (6.4-8.2)
--- NOTE | 2018-11-16 20:42 | NUR ---
URINE SAMPLE COLLECTED.
[2018-11-16 20:59] LABS: APPEARANCE,URINE Clear (CLEAR); BILIRUBIN,URINE Negative (NEGATIVE); BLOOD, URINE Negative Ery/uL (NEGATIVE); COLOR,URINE Yellow (YELLOW); KETONES,URINE Negative (NEGATIVE); LEUKOCYTE ESTERASE ,URINE Moderate (NEGATIVE); NITRITE, URINE Negative (NEGATIVE); PROTEIN,URINE Negative (NEGATIVE); UGLUCOSE Negative (NEGATIVE); UROBILINOGEN,URINE 0.2 EU/dL (0.2)
--- NOTE | 2018-11-16 21:18 | NUR ---
PER DARRELL MATA ON THE WAY FOR EVAL.
[2018-11-16 21:29] LABS: RBC,URINE 0-2 /HPF (0-2)
[2018-11-16 21:30] LABS: BACTERIA,URINE Few /HPF (None Seen); SQUAMOUS EPITHELIAL CELL,UR Few /HPF (None Seen)
--- NOTE | 2018-11-16 21:41 | NUR ---
PINKY WEDDING FLORIST AT BEDSIDE FOR EVAL
--- NOTE | 2018-11-17 02:05 | NUR ---
CALLED RN SUP FOR GEROPSYCH BED
--- NOTE | 2018-11-17 02:08 | NUR ---
PT ASSIGNED TO 11-A
--- NOTE | 2018-11-17 02:20 | NUR ---
report called to gianna quintero. patient to be admitted to gps rm 211 bed 1 on hold for dts.
[2018-11-17 03:00] VITALS: BP 120/70
[2018-11-17] MEDS ORDERED: MAG HYDROX/AL HYDROX/SIMETH 30 ML UDC PO PRN (03:30)
[2018-11-17] MEDS ORDERED: MAGNESIUM HYDROXIDE 30 ML UDC PO PRN (03:30)
[2018-11-17] MEDS ORDERED: LORAZEPAM 0.5 MG TABLET PO PRN (03:30)
[2018-11-17] MEDS ORDERED: ACETAMINOPHEN 325 MG TABLET PO PRN (03:30)
[2018-11-17] MEDS ORDERED: TEMAZEPAM 7.5 MG CAPSULE PO PRN (03:30)
--- NOTE | 2018-11-17 04:54 | NUR ---
GPS/CONFIGURATION ANALYST NOTE: ADMITTED FROM [facility], INITIALLY FROM [facility] ON 5150 HOLD FOR DTS. PATIENT WAS DISCHARGED YESTERDAY FROM GPS IN THE MORNING. PATIENT WAS COMPLAINING OF DEPRESSION WITH SUICIDAL IDEATION. CAME TO THE UNIT AT 0300 VIA GURNEY. SHE SHOWS NO S/S OF ANY PAIN. , RESPIRATION EVEN, BREATHING PATTERN NON-LABORED, NO APPARENT DISTRESS NOTED. UPON FACE TO FACE ASSESSMENT, PATIENT WAS A/O X3, CRYING, QUITE DISORGANIZED, STATED " I DON'T FEEL SAFE, I AM DEPRESSED, I WANT TO HURT MYSELF." PATIENT WAS PLACED IN BED COMFORTABLY, A/O X3, CALM, COOPERATIVE, PROVIDES PERTINENT INFORMATIONS, DEPRESSED, LOW ENERGY, EYES SWOLLEN FROM CRYING, DENIES SI/HI. STATED THAT SHE HAS NO PLAN TO HURT HERSELF.NO PLAN TO HURT HERSELF. SKIN INTACT. NOTED OLD SCAR LOWER BACK, REDNESS ON RIGHT HIP/OLD INCISION. PATIENT IS AMBULATORY, MRSA SCREEN DONE, MED-RECON DONE. MEDICATION GUIDE, PATIENT IS FULL CODE. I.D. BAND ON, BED ALARM ON. ENVIRONMENTAL SAFETY CHECK DONE. BED LOCKED AND PLACED ON LOWEST POSITION. WILL CONTINUE TO MONITOR Q 15 MINS. FOR SAFETY AND BEHAVIOR.
--- NOTE | 2018-11-17 06:48 | NUR ---
GPS RN NOTE, PATIENT IS A NEW ADMIT, NEEDS A MED RECONCILIATION AND, DNR ORDER DUE TO HAVING POLST IN CHART. PAGED [facility] AND INFORMED DR PACKER OF MY FINDINGS. DR PACKER ORDERED DNR CODE STATUS. DNR ORDER VERIFIED OVER PHONE WITH BLAIR SANCHEZ. DR PACKER ALSO ASKED TO ENDORSE TO HAVE ROUNDING MD TO RECONCILE PATIENT'S HOME MEDICATION. WILL ENDORSE TO AM SHIFT NURSE. WILL CONTINUE TO MONITOR THIS PATIENT.
--- NOTE | 2018-11-17 06:57 | NUR ---
PAGED DR. CONDE, RE: MED - RECON, HE STATED, " THAT CAN BE DONE BY THE MORNING PEOPLE".
[2018-11-17] MEDS ORDERED: FAMO20TA8 PO (07:23)
[2018-11-17] MEDS ORDERED: LEVE1000 PO (07:27)
[2018-11-17] MEDS ORDERED: MIRT30TA PO (07:29)
[2018-11-17] MEDS ORDERED: BLOOD SUGAR DIAGNOSTIC 1 EACH STRIP IN ONE (07:30)
[2018-11-17] MEDS ORDERED: CLON0.5T4 PO (07:33)
[2018-11-17] MEDS ORDERED: RIVA1.5C7 PO (07:41)
[2018-11-17 08:00] VITALS: BP 132/70
[2018-11-17] MEDS: clonazePAM 0.5 MG TABLET PO SCH ×2 (12:13→17:21)
[2018-11-17 16:00] VITALS: BP 127/76
[2018-11-17] MEDS: RIVASTIGMINE TARTRATE 1.5 MG CAPSULE PO SCH (17:21)
--- NOTE | 2018-11-17 19:30 | NUR ---
GPS RN NOTE, RECEIVED PATIENT AWAKE AND IN BED, NO S/S OR COMPLAINTS OF PAIN AT THIS TIME. PATIENT IS DISPLAYING NO S/S OF APPARENT DISTRESS AT THIS TIME. PATIENT BREATHING IS UNLABORED WITH EQUAL RISE AND FALL OF THE CHEST. PATIENT IS ALERT AND ORIENTED X 2-3 ON ROOM AIR WITH A SPO2 96 %. PATIENT IS COMPLIANT WITH MEDICATION, DISORGANIZED, DEPRESSED, AND COOPERATIVE. PATIENT DENIES SUICIDE IDEATIONS AND HOMICIDAL IDEATIONS AT THIS TIME. PATIENT ASSISTED WITH TURNING AND REPOSITIONING Q2 HR AND PRN FOR COMFORT AND CIRCULATION. PATIENT HAS NO NEEDS AT THIS TIME. PATIENT EDUCATED ON THE USE OF THE CALL WALLER. PATIENT BED SIDE RAILS UP X 2 FOR SAFETY, BED IS LOCKED AND LOW. WILL CONTINUE TO MONITOR Q15 MIN WITH THE HELP OF STAFF TO MAINTAIN SAFETY.
[2018-11-17 19:41] VITALS: BP 125/48
[2018-11-17] MEDS: MIRTAZAPINE 15 MG TABLET PO SCH (21:38)
[2018-11-17] MEDS: LEVETIRACETAM SOL (5 ML) 100 MG/ML UDC PO SCH (23:41)
[2018-11-18 07:28] LABS: BASOPHILS % (AUTO) 0.4 % (0.0-2.0); EOSINOPHILS % (AUTO) 1.9 % (0.0-6.0); HEMATOCRIT 38 % (33-45); HEMOGLOBIN 13.1 g/dL (11.5-14.8); LYMPHOCYTES # (AUTO) 1.3 /CMM (0.8-4.8); LYMPHOCYTES % (AUTO) 32.9 % (20.0-44.0); MEAN CORPUSCULAR HGB CONC 34 g/dl (31.0-36.0); MEAN CORPUSCULAR VOLUME 91 fL (82-100); MONOCYTES # (AUTO) 0.4 /CMM (0.1-1.30); MONOCYTES % (AUTO) 9.1 % (2.0-12.0); NEUTROPHILS # (AUTO) 2.2 /CMM (1.8-8.9); NEUTROPHILS % (AUTO) 55.7 % (43.0-81.0); PLATELET COUNT (AUTO) 210 /CMM (150-450); RED BLOOD CELL COUNT(AUTO) 4.23 MIL/uL (4.0-5.2); WHITE BLOOD COUNT (AUTO) 3.9 K/uL (4.3-11.0)
[2018-11-18 07:45] LABS: CALCIUM, SERUM 9.1 mg/dL (8.5-10.1); CREATININE 0.6 mg/dL (0.6-1.3); POTASSIUM 3.7 mmol/L (3.5-5.1)
[2018-11-18 08:00] VITALS: BP 148/70
[2018-11-18] MEDS: clonazePAM 0.5 MG TABLET PO SCH ×3 (08:21→17:19)
[2018-11-18] MEDS: RIVASTIGMINE TARTRATE 1.5 MG CAPSULE PO SCH ×2 (08:21→17:19)
[2018-11-18] MEDS: LEVETIRACETAM SOL (5 ML) 100 MG/ML UDC PO SCH ×2 (08:21→20:51)
[2018-11-18] MEDS: FERROUS SULFATE (325 MG) 325 MG/TAB TABLET PO SCH ×3 (08:22→17:19)
[2018-11-18] MEDS: FAMOTIDINE (20 MG) 20 MG TABLET PO SCH (08:22)
[2018-11-18] MEDS: LOSARTAN POTASSIUM 25 MG TABLET PO SCH (08:22)
[2018-11-18] MEDS: POLYETHYLENE GLYCOL 3350 17 GM POWD.PACK PO SCH (08:23)
--- NOTE | 2018-11-18 14:59 | NUR ---
GPS/RN PT WAS AGITATED BY OTHER PATIENT JAMARCUS Hunter (ROOM [address]) WHO WAS OFFERING HER UNWANTED LEGAL ADVICE. RUFUS STATED: " I DON'T WANT HER IN MY ROOM, SHE GETS ME AGITATED.." [facility] WAS CALLED TO HELP TO ESCORT JAMARCUS TO HER ROOM. ATTENDING NURSE FOR JAMARCUS Hunter Rodriguez RN WAS PRESENT DURING THIS INCIDENT.
[2018-11-18 15:50] VITALS: BP 133/58
[2018-11-18 19:35] VITALS: BP 131/77
[2018-11-18] MEDS: MIRTAZAPINE 15 MG TABLET PO SCH (20:51)
--- NOTE | 2018-11-19 03:15 | NUR ---
Patient remained compliant with care. Calm and cooperative. Thought process is linear. Interacted well with staff and selective peers. Denies SI/AVH. Able to make her needs known. Will continue to monitor behavior and medication effectiveness.
[2018-11-19 08:00] VITALS: BP 131/64
[2018-11-19] MEDS: RIVASTIGMINE TARTRATE 1.5 MG CAPSULE PO SCH ×2 (09:11→16:43)
[2018-11-19] MEDS: POLYETHYLENE GLYCOL 3350 17 GM POWD.PACK PO SCH (09:11)
[2018-11-19] MEDS: LEVETIRACETAM SOL (5 ML) 100 MG/ML UDC PO SCH ×2 (09:11→21:24)
[2018-11-19] MEDS: FERROUS SULFATE (325 MG) 325 MG/TAB TABLET PO SCH ×3 (09:12→16:43)
[2018-11-19] MEDS: LOSARTAN POTASSIUM 25 MG TABLET PO SCH (09:12)
[2018-11-19] MEDS: clonazePAM 0.5 MG TABLET PO SCH ×3 (09:12→16:43)
[2018-11-19] MEDS: FAMOTIDINE (20 MG) 20 MG TABLET PO SCH (09:12)
--- NOTE | 2018-11-19 10:15 | NUR ---
Individual Intervention: SW spoke to the pt about her return from the facility due to her feeling suicidal. Pt stated that once she arrived at the facility she began to feel anxious and was uncertain about the steps to continue. SW stated that everything was explained to her before the pt discharged in the sense that APS is involved and the pts friend is working with a placement agency to have the pt move to [place]. Pt stated that she forgot because she became anxious. SW stated that we will work with her once again and inform her about her treatment plan step by step to create reassurance.
[2018-11-19 16:00] VITALS: BP 130/76
--- NOTE | 2018-11-19 16:11 | NUR ---
KRISTOFER called the pts friend, Eleanor Hinds ([phone]), and informed her of the pts readmission to the hospital and then informed her about the pts initial treatment plan and discharge plan. KRISTOFER also provided her with senior resources in [place] so that she can help search for placement for the pt in [place].
--- NOTE | 2018-11-19 16:19 | NUR ---
Psychosocial Note: I, Maria G Hernández CONTRACT AGENT, attest to the patients previous psychosocial information dated on 11/05/18. Update On Events leading to Admission and Discharge Plan: Pt has returned to the hospital within a few days of her previous discharge date (11/16/18). Per hold, the pt was brought in from [facility] due to the pt complaining of depression with suicidal ideation. During face to face assessment, the pt is alert and oriented x3. Pt was crying, disorganized, and stated, I dont feel safe, I am depressed and I want to hurt myself. Pt reported wanting to overdose on her medications, pt was anxious, restless, and feeling overwhelm. Upon social services designee evaluation, the pt appears to be oriented x2 (self and situation). The pt appears to be in a depressed and labile mood and presents with a distressed affect. Pt stated that she is under a lot of pressure and has a lot of anxiety because she does not know where her is and she does not know how she will take care of herself. Pt states that she feels anxious constantly and it has been affecting her ability to eat and sleep appropriately. Pt appears to be overwhelmed and therefore unable to remember the answer to questions regarding the assessment. The pt appears to be frustrated when she cannot remember the answers regarding her own life. Pts insight and judgment appear to be impaired and the pts impulse control is poor. Pt will be discharged back to [facility] once she is stable for discharge.
--- NOTE | 2018-11-19 16:20 | NUR ---
KRISTOFER contacted Ara ([phone]) from [facility] and she stated that the pt can return to their facility once she is stable for discharge.
[2018-11-19 19:55] VITALS: BP 97/51
[2018-11-19] MEDS: MIRTAZAPINE 15 MG TABLET PO SCH (21:24)
[2018-11-20 08:00] VITALS: BP 112/63
[2018-11-20] MEDS: clonazePAM 0.5 MG TABLET PO SCH ×3 (08:11→16:41)
[2018-11-20] MEDS: POLYETHYLENE GLYCOL 3350 17 GM POWD.PACK PO SCH (08:11)
[2018-11-20] MEDS: FAMOTIDINE (20 MG) 20 MG TABLET PO SCH (08:11)
[2018-11-20] MEDS: FERROUS SULFATE (325 MG) 325 MG/TAB TABLET PO SCH ×3 (08:11→16:41)
[2018-11-20] MEDS: RIVASTIGMINE TARTRATE 1.5 MG CAPSULE PO SCH ×2 (08:11→16:41)
[2018-11-20] MEDS: LEVETIRACETAM SOL (5 ML) 100 MG/ML UDC PO SCH ×2 (08:11→20:58)
[2018-11-20] MEDS: LOSARTAN POTASSIUM 25 MG TABLET PO SCH (10:05)
--- NOTE | 2018-11-20 15:25 | NUR ---
Group Note: SW encouraged the SW to participate in group therapy on 11/20/18 at 2pm on the topic of discharge planning but the pt stated that she was feeling too anxious and her range of voice began to increase. Pt stated that she would like to talk to the SW directly about her discharge planning and the SW proceeded to provide an individual intervention. SW stated that the pt will return to the facility that she was sent to where she will receive assistance from her APS worker and her friend, Eleanor, in moving [facility] [place].
[2018-11-20 16:00] VITALS: BP 129/52
[2018-11-20 20:09] VITALS: BP 115/83
[2018-11-20] MEDS: MIRTAZAPINE 15 MG TABLET PO SCH (21:01)
[2018-11-21 08:00] VITALS: BP 114/80
[2018-11-21] MEDS: FAMOTIDINE (20 MG) 20 MG TABLET PO SCH (08:16)
[2018-11-21] MEDS: LEVETIRACETAM SOL (5 ML) 100 MG/ML UDC PO SCH ×2 (08:16→20:29)
[2018-11-21] MEDS: POLYETHYLENE GLYCOL 3350 17 GM POWD.PACK PO SCH (08:16)
[2018-11-21] MEDS: FERROUS SULFATE (325 MG) 325 MG/TAB TABLET PO SCH ×3 (08:17→16:31)
[2018-11-21] MEDS: clonazePAM 0.5 MG TABLET PO SCH ×3 (08:17→16:30)
[2018-11-21] MEDS: LOSARTAN POTASSIUM 25 MG TABLET PO SCH (08:17)
[2018-11-21] MEDS: RIVASTIGMINE TARTRATE 1.5 MG CAPSULE PO SCH ×2 (09:00→16:30)
--- NOTE | 2018-11-21 09:42 | NUR ---
RN NOTE: INFORMED LIDIA FROM PHARMACY x2 FOR EXELON REFILL IN OMNICELL. STILL AWAITING FOR MEDICATION.
--- NOTE | 2018-11-21 12:15 | NUR ---
Gerardo Sawyer ([phone]), from [place], called the SW and stated that he would be faxing over paperwork for the pt to complete regarding her late and then he asked to speak to the pt so the SW transferred the call.
--- NOTE | 2018-11-21 13:40 | NUR ---
Individual Intervention: SW spoke to the pt and informed her that she spoke to Gerardo Sawyer who will be faxing over paperwork regarding the pt's late 's affairs. SW stated that she will assist her in completing the paperwork once it arrives and assured her that her situation is being handled.
--- NOTE | 2018-11-21 14:17 | NUR ---
KRISTOFER called the pts friend, Eleanor Hinds ([phone]), and informed her that the pt is going to be discharged the following day to [facility]. KRISTOFER informed her that the pt is going to be better prepared for this discharge and will have each step of the discharge explained to her.
--- NOTE | 2018-11-21 15:08 | NUR ---
GROUP NOTE: SW encouraged pt to participate in group on this present day discussing "discharge planning." Pt stated that she needed her SW to help her apply for social security as she had no one in her life that could help her due to everyone being . KRISTOFER educated pt on the SW role in the hospital and explained that SW is unable to assist with helping her apply for social security and informed her that once she is discharged to the SNF the onsite case manager there can assist her with applying for benefits. Pt appeared very anxious and also was labile in mood. Pt began yelling that she had no one and that she did not know what to do.
--- NOTE | 2018-11-21 15:29 | NUR ---
KRISTOFER called Gerardo Sawyer ([phone])Arranger from [facility], and informed him that the pt is going to be discharged tomorrow to [facility] and stated that the SW did not receive the fax that he stated he would send. He stated that he would attempt one more time to fax it before the pt is discharged.
[2018-11-21 16:00] VITALS: BP 106/52
[2018-11-21 19:59] VITALS: BP 113/66
--- NOTE | 2018-11-21 20:35 | NUR ---
GPS-RN PATIENT APPEARED VERY APPREHENSIVE, DEPRESSED, CRYING, AND ALSO WAS LABILE IN MOOD. PT. BEGAN YELLING, "I HAVE NO ONE AND I DON'T KNOW WHAT TO DO". PATIENT STATED, "I WANNA GO HOME TO [place] AND I DON'T WANNA GO TO [facility]". DR. POTTER AT PT'S BEDSIDE EXPLAINED TO PATIENT THAT THE MOLD CLOSER WILL TALK TO HER TOMORROW MORNING REGARDING HER PROPER AND SAFE DISCHARGE. PATIENT VERBALIZED UNDERSTANDING. PATIENT DENIES SI/HI AT THIS TIME. WILL ENDORSE TO THE DAY SHIFT NURSE FOR CONTINUITY OF CARE.
[2018-11-21] MEDS: MIRTAZAPINE 15 MG TABLET PO SCH (21:06)
[2018-11-22 08:00] VITALS: BP 127/70
[2018-11-22] MEDS: FERROUS SULFATE (325 MG) 325 MG/TAB TABLET PO SCH ×3 (09:04→16:31)
[2018-11-22] MEDS: LOSARTAN POTASSIUM 25 MG TABLET PO SCH (09:04)
[2018-11-22] MEDS: POLYETHYLENE GLYCOL 3350 17 GM POWD.PACK PO SCH (09:04)
[2018-11-22] MEDS: LEVETIRACETAM SOL (5 ML) 100 MG/ML UDC PO SCH (09:04)
[2018-11-22] MEDS: RIVASTIGMINE TARTRATE 1.5 MG CAPSULE PO SCH ×2 (09:04→16:31)
[2018-11-22] MEDS: clonazePAM 0.5 MG TABLET PO SCH ×4 (09:04→16:31)
[2018-11-22] MEDS: FAMOTIDINE (20 MG) 20 MG TABLET PO SCH (09:06)
--- NOTE | 2018-11-22 10:30 | NUR ---
Individual Intervention with the pt: SW spoke to the pt at great length about her discharge plan. SW went through her discharge step by step and explained the reasoning behind her discharge to a prison facility. Pt wrote down the explanations and provided her with the contacts of the individuals that will be assisting her. Pt stated that she was ready to be discharged to the facility.
--- NOTE | 2018-11-22 10:34 | NUR ---
KRISTOFER faxed the appropriate paperwork to [employer] with attention to Gerardo to the fax number: [phone].
--- NOTE | 2018-11-22 11:31 | NUR ---
GPS/RN-NOTES RECEIVED T.O ORDER FROM DR. POTTER TO DISCONTINUE HOLD,CONTINUE ALL MEDICATIONS AND DISCHARGE PATIENT.NOTED AND CARRIED OUT.
--- NOTE | 2018-11-22 12:12 | NUR ---
SNF Request: KRISTOFER faxed updated notes to [facility] with attention to Ara to the fax number: [phone].
--- NOTE | 2018-11-22 13:05 | NUR ---
Ara ([phone]) from [facility] contacted the and stated that the pt cannot return to the facility at this time because they are having their [facility] survey at this time.
--- NOTE | 2018-11-22 15:58 | NUR ---
SNF Referral: RKISTOFER faxed a referral to [facility] with attention to KINJAL and Sylvester to the fax number: [phone].
--- NOTE | 2018-11-22 15:59 | NUR ---
KINJAL ([phone]) from [facility] contacted the and stated that she was accepted to their facility.
[2018-11-22 16:00] VITALS: BP 123/81
--- NOTE | 2018-11-22 16:00 | NUR ---
KRISTOFER called the pts friend, Eleanor Hinds ([phone]), and informed her that the pt will be discharged to [facility] and provided her the information.
--- NOTE | 2018-11-22 16:04 | NUR ---
Discharge Note: Pt was discharged to [facility] located at [address] [place] [address]; ([phone]). Pt was transported via [facility] at 3PM. Pts friend, Eleanor ([phone]), was informed of this discharge plan. Upon discharge, the pt appeared to be in a euthymic mood and presented with an anxious affect. Pt denied both suicidal and homicidal ideation as well as auditory and visual hallucinations. Pt will be under the care of psychiatrist, Dr. Tena, located at [address], [address] [place] [address]; and md senior research scientist, Dr. Cowart, located at [address] [place] [address]; .
--- NOTE | 2018-11-22 16:42 | NUR ---
GPS/RN-NOTES PATIENT WAS DISCHARGE TO [facility] TODAY. DR. POTTER AND WILFRIDO FELIX AWARE AND AGREED OF PATIENT DISCHARGE.PATIENT LEFT THE UNIT IN STABLE CONDITION ALERT ORIENTED X2 AMBULATORY STEADY GAIT. PATIENT DID NOT VERBALIZED SI/HI ,DENIES VISUAL/AUDITORY HALLUCINATIONS AT THE TIME OF DISCHARGE.REPORT WAS GIVEN TO NICOLE( LEAD [employer] ON [employer]).PATIENT WAS PICK BY AMBULANCE VIA GURNEY WITH TWO STAFF ASSIST. PATIENT LEFT THE UNIT WITH ALL BELONGINGS .PATIENT STRONGLY REFUSED BODY ASSESSMENT AND PICTURE TAKEN PRIOR TO DISCHARGE.
== END 2018-11-22 16:35 | DRG 885 ==
LOC: ER 19:03 → GPS 11-17 02:37
PROVIDERS: ADMIT Psychiatry & Neurology Psychiatry; ATTEND Nurse Practitioner Acute Care
DX: F33.2 Major depressive disorder, recurrent severe without psychotic features (principal); R45.851 Suicidal ideations; K21.9 Gastro-esophageal reflux disease without esophagitis; E11.9 Type 2 diabetes mellitus without complications; F03.90 Unspecified dementia, unspecified severity, without behavioral disturbance, psychotic disturbance, mood disturbance, and anxiety; F41.9 Anxiety disorder, unspecified; K64.9 Unspecified hemorrhoids; R32 Unspecified urinary incontinence; M19.90 Unspecified osteoarthritis, unspecified site; Z96.659 Presence of unspecified artificial knee joint; Z88.2 Allergy status to sulfonamides; Z86.011 Personal history of benign neoplasm of the brain
CPT/HCPCS: 36415; 80048-TC; 80061-TC; 80076-TC; 80305; 81000-TC; 85025-TC; 87081-TC; 87086-TC; G0480; J1953